=== PATIENT | female | born 1965 | race Caucasian/White ===

== ENCOUNTER 2019-07-07 21:57 | Emergency (ER) | payer MEDICAID ==
[~2019-07-07] VITALS: Ht 162.6 cm; Wt 68.3 kg
[2019-07-07] MEDS ORDERED: METF-960 PO (22:37)
[2019-07-07 23:55] VITALS: BP 175/76
== END 2019-07-08 00:48 | disposition home or self-care (01) ==
LOC: EMS 21:59
DX: T74.21XA Adult sexual abuse, confirmed, initial encounter (principal); E11.9 Type 2 diabetes mellitus without complications; Z79.84 Long term (current) use of oral hypoglycemic drugs